=== PATIENT | male | born 1955 | race Caucasian/White ===

== ENCOUNTER 2021-02-06 21:32 | Emergency (ER) | payer OTHER ==
[~2021-02-06] VITALS: Ht 185 cm; Wt 88.5 kg
[2021-02-06 21:50] LABS: BILIRUBIN,URINE NEGATIVE (NEGATIVE); CLARITY,URINE CLEAR; COLOR,URINE YELLOW; GLUCOSE, URINE (UA) NEGATIVE (NEGATIVE); KETONES,URINE NEGATIVE (NEGATIVE); LEUKOCYTE ESTERASE ,URINE TRACE (NEGATIVE); NITRITE,URINE NEGATIVE (NEGATIVE); PROTEIN,URINE NEGATIVE (NEGATIVE)
--- NOTE | 2021-02-06 21:51 | ED GU-Male ---
General Stated Complaint: URINARY FREQUENCY AND URGENCY Source: patient Exam Limitations: no limitations History of Present Illness Date Seen by Provider: Feb 06, 2021 Time Seen by Provider: 21:30 Initial Comments Patient to the ER by private conveyance with significant other and chief complaint 36 hours of urinary frequency burning pain and history of prostatitis. He recently moved to the area and does not see a urologist locally. He has not been on antibiotics for it recently. He is having some chills and body aches but no cough nausea objective fever Allergies and Home Medications Patient Home Medication List Home Medication List Reviewed: Yes Review of Systems Review of Systems Constitutional: No chills, No diaphoresis EENTM: No ear discharge, No ear pain Respiratory: No cough, No short of breath Cardiovascular: No chest pain, No edema Gastrointestinal: No abdominal pain, No nausea Genitourinary: denies burning, denies dysuria Musculoskeletal: No back pain, No joint pain All Other Systemes Reviewed Negative Unless Noted: Yes Past Pygmibu-Jumtxg-Pliczz Hx Patient Social History Tobacco Use?: No Use of E-Cig and/or Vaping dev: No Substance use?: No Pt feels they are or have been: No Physical Exam Vital Signs Vital Signs - First Documented 02/06/21 21:45 Temp 37.0 Pulse 72 Resp 16 B/P (MAP) 156/86 (109) O2 Delivery Room Air Capillary Refill : Height, Weight, BMI Height: '" Weight: lbs. oz. kg; BMI Method: General Appearance: WD/WN, mild distress HEENT: PERRL/EOMI, pharynx normal Neck: full range of motion, normal inspection Cardiovascular: normal peripheral pulses, regular rate, rhythm Respiratory: no respiratory distress, no accessory muscle use Gastrointestinal: normal bowel sounds, non tender, soft Extremities: normal range of motion, non-tender, normal capillary refill Neurologic/Psychiatric: alert, normal mood/affect, oriented x 3 Progress/Results/Core Measures Suspected Sepsis SIRS Temperature: Pulse: Respiratory Rate: Blood Pressure / Mean: Results/Orders Lab Results Laboratory Tests Test 02/06/21 21:45 Range/Units Urine Color YELLOW Urine Clarity CLEAR Urine pH 6.0 5-9 Urine Specific [place] 1.020 1.016-1.022 Urine Protein NEGATIVE NEGATIVE Urine Glucose (UA) NEGATIVE NEGATIVE Urine Ketones NEGATIVE NEGATIVE Urine Nitrite NEGATIVE NEGATIVE Urine Bilirubin NEGATIVE NEGATIVE Urine Urobilinogen 0.2 < = 1.0 MG/DL Urine Leukocyte Esterase TRACE H NEGATIVE Urine RBC (Auto) NEGATIVE NEGATIVE Urine RBC NONE /HPF Urine WBC 0-2 /HPF Urine Squamous Epithelial Cells RARE /HPF Urine Crystals NONE /LPF Urine Bacteria TRACE /HPF Urine Casts NONE /LPF Urine Mucus SMALL H /LPF Urine Culture Indicated NO My Orders Orders - LUIS DANIEL VIDES Ua Culture If Indicated (02/06/21 21:37) Bladder Scan (02/06/21 21:57) Vital Signs/I&O 02/06/21 21:45 Temp 37.0 Pulse 72 Resp 16 B/P (MAP) 156/86 (109) O2 Delivery Room Air Capillary Refill : Progress Note #1: Time: 21:51 Progress Note UA and a bedside bladder scan Progress Note #2: Time: 23:29 Progress Note Bladder scan shows 25 mL after he urinated. UA does not look remarkable or going to put him on antibiotics regardless to cover for possible prostatitis. Departure Impression Primary Impression: Prostatitis Qualified Codes: N41.0 - Acute prostatitis Disposition: HOME, SELF-CARE Condition: Stable Departure-Patient Inst. Decision time for Depature: 23:30 Referrals: NO,LOCAL PHYSICIAN (PCP) Primary Care Physician DINA BAKER MD Patient Instructions: Prostatitis (DC) Add. Discharge Instructions: Ciprofloxacin 1 capsule twice a day for the next week. Take it with food. Drink plenty of fluids. Follow-up with Dr. Baker, urology by calling for an appointment tomorrow. Return to the ER if you are having inability to urinate or other worrisome symptoms. Scripts Ciprofloxacin HCl (Ciprofloxacin HCl) 500 Mg Tablet 500 MG PO BID for 7 Days, #14 TAB 0 Refills Prov: LUIS DANIEL VIDES 02/06/21 Copy Copies To 1: DINA BAKER MD, TITUS J Feb 06, 2021 21:51
[2021-02-06 21:56] LABS: BACTERIA,URINE TRACE /HPF; SQUAMOUS EPITHELIAL CELL,UR RARE /HPF; WBC,URINE 0-2 /HPF
[2021-02-06] MEDS ORDERED: CIPR500T5 PO (23:32)
[2021-02-06] MEDS ORDERED: CIPROFLOXACIN 500 MG (CIPRO) TABLET PO STA (23:36)
[2021-02-06 23:46] VITALS: BP 143/72
== END 2021-02-06 23:46 | disposition home or self-care (01) ==
LOC: ER 21:35
DX: N41.9 Inflammatory disease of prostate, unspecified (principal)
CPT/HCPCS: 81000; 99283

== ENCOUNTER → 2021-03-04 | Outpatient (CLI) | payer OTHER ==
[~2021-03-04] MED LIST: CIPR500T5 PO
== END ==
LOC: CARD 13:00
PROVIDERS: ATTEND Family Medicine
DX: I08.0 Rheumatic disorders of both mitral and aortic valves (principal)
CPT/HCPCS: 93306

== ENCOUNTER 2021-03-24 09:03 | Outpatient (CLI) | payer OTHER ==
[~2021-03-24] VITALS: Ht 185.5 cm; Wt 88.5 kg
[2021-03-24] MEDS ORDERED: BUDE10.2 IH (10:32)
[2021-03-24] MEDS ORDERED: MONT10TA21 PO (10:32)
== END 2021-03-24 11:25 | disposition home or self-care (01) ==
LOC: PREOP 09:03
PROVIDERS: ATTEND Internal Medicine
DX: Z01.818 Encounter for other preprocedural examination (principal)

== ENCOUNTER 2021-04-01 07:30 | Day surgery (SDC) | payer OTHER ==
--- NOTE | 2021-03-25 06:56 | HISTORY AND PHYSICAL ---
DATE OF SERVICE: COLONOSCOPY HISTORY AND PHYSICAL HISTORY OF PRESENT ILLNESS: Anand The patient is a 65-year-old white male referred by Dr. Souza for screening colonoscopy. He is deemed to be of higher than average risk as he has a personal history of colon polyps and his brother was diagnosed with colon cancer in his mid 50s. The patient denies melena or bright red blood per rectum, abdominal pain or change in bowel habit. He reports no significant change in weight. PAST MEDICAL HISTORY: Significant for COPD and gastroesophageal reflux without evidence for dysphagia, controlled well on Prilosec 20 mg daily. He has had several bouts of prostatitis, most recently treated in February, which resulted in the emergency room visits. He is being followed by Dr. Garcia with current resolution of symptoms. He reports a history of mitral valve prolapse, had a friend with the disease. He developed endocarditis and reports that he has always had antibiotics prior to previous dental procedures and colonoscopy with IV antibiotic prior to past colonoscopies. FAMILY HISTORY: As noted in the HPI. 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 He has a 30+ pack year smoking history, but quit in 1991. REVIEW OF SYSTEMS: CONSTITUTIONAL: Denies night sweats, chills, fever, change in weight. PULMONARY: Denies dyspnea on exertion, stable cough, no shortness of breath at rest. No hemoptysis. CARDIOVASCULAR: Denies chest pain, orthopnea, PND or pedal edema and has had no syncope or presyncope. GASTROINTESTINAL: As noted in the HPI. PHYSICAL EXAMINATION: GENERAL: Reveals a fit appearing white male, appeared to be in no acute distress. VITAL SIGNS: Blood pressure 140/80, weight 196 pounds. HEENT: Unremarkable. Sclerae nonicteric. CHEST: Clear to auscultation. CARDIOVASCULAR: Reveals a regular rate and rhythm, did not appreciate any abnormal heart sounds or heart murmur. ABDOMEN: Soft, supple without mass, organomegaly or tenderness. EXTREMITIES: Reveal no cyanosis, clubbing or edema. PAST SURGICAL HISTORY: The patient has had sinus surgery and ventral hernia repair with mesh. Electronic medical record was reviewed. Echo did reveal mitral valve leaflet thickening with some posterior prolapse and mild mitral insufficiency with normal LV function and estimated ejection fraction of 60 to 65%. PA pressure was upper limits of normal, estimated at 30 to 35 mmHg. No other significant valvular abnormalities were noted. ASSESSMENT AND PLAN: The patient is being set up for screening colonoscopy, deemed to be of higher than average risk as he has had a past history of colon polyps and a brother diagnosed with colon cancer in his mid 50s. We will plan on giving 1 gram of Ancef prior to colonoscopy. Prep instructions with the Suprep kit were given and questions were answered. I thank you for the referral of this pleasant gentleman. Job ID: [id number] DocumentID: [id number] Dictated Date: 03/17/2021 16:37:54 [employer]one [employer]ner Date: 03/17/2021 16:58:22 Dictated By: WILFRED SMITH MD
[~2021-04-01] VITALS: Ht 185.5 cm; Wt 88.5 kg
[~2021-04-01 07:30] MED LIST changes: +BUDE10.2 IH; +LACTATED RINGERS 1,000 ML IV STA; +LIDOCAINE JELLY 2% 6 ML SYRINGE MM PRN; +MONT10TA21 PO; +ceFAZolin INJECTION 1,000 MG in WATER (STERILE) FOR INJECTION 10 ML IV ONE
--- OUTSIDE RECORDS SUMMARY | 2021-04-01 07:33 | XMS REPORT | CCD ---
Author Author Brennan Souza D.O. Organization ASHLEE SOUZA DO [facility] Address [address] [place] [address] Phone Care Team Providers Care Division Chief Name Role Phone PP Unavailable CCM Unavailable Summary Purpose Interface Exchange Insurance Providers Payer name Policy type / Coverage type Covered alliance party ID Effective Begin Date Effective End Date [facility] Commercial Insurance [id number] Unkno wn Family history Brother Diagnosis Age At Onset Cancer Unknown Father Diagnosis Age At Onset Cardiovascular disease Unknown Mother Diagnosis Age At Onset Rheumatic fever Unknown Social History Social History Element Codes Description Effective Dates Marital status Unknown 02/28/2021 Number of children Unknown 2 02/28/2021 Employment Unknown Currently employed 02/28/[address]: 4531293 Former smoker quit 1992 02/28/[address]: 030653260 Never drinks alcohol 2020 Has the patient ever used illegal drugs? Unknown In the past only as teenager only 02/28/2021 Allergies, Adverse Reactions, Alerts Substance Reaction Codes Entered Date Inactivated Date Status * NO KNOWN FOOD ALLERGIES Unknown 02/28/2021 No Inactiv e Date Active * NO KNOWN ENVIRONMENTAL ALLERGIES Unknown 02/28/2021 N o Inactive Date Active * NO KNOWN DRUG ALLERGIES Unknown 02/28/2021 No Inactiv e Date Active Problems Condition Codes Effective Dates Condition Status Acute effusion of both middle ears ICD-10: H65.193 ICD-9: 381.00 03/22/2021 Active Decreased hearing of both ears ICD-10: H91.93 ICD-9: 389.9 03/22/2021 Active Colonic polyp ICD-10: K63.5 ICD-9: 211.3 02/28/2021 Active COPD (chronic obstructive pulmonary disease) ICD-10: J 44.9 ICD-9: 496 02/28/2021 Active Esophageal reflux ICD-10: K21.9 ICD-9: 530.81 02/28/2021 Active Exercise-induced asthma ICD-10: J45.990 ICD-9: 493.81 02/28/2021 Active Family history of colon cancer ICD-10: Z80.0 ICD-9: V16.0 02/28/2021 Active Mitral valve prolapse ICD-10: I34.1 ICD-9: 424.0 02/28/2021 Active Prostatitis ICD-10: N41.9 ICD-9: 601.9 02/28/2021 Active Medications Medication Codes Instructions Start Date Stop Date Status Fill Instructions prednisone 20 mg tablet RxNorm: 999224 Take 1 Tablet(s) Oral QD 03/26/2021 Active Prilosec OTC 20 mg tablet,delayed release RxNorm: 702122 Take 1 Tablet(s) Oral QD 02/28/2021 No Stop Date Active famotidine 40 mg tablet RxNorm: 092279 Take 1 Tablet(s) Oral QD replaces prilosec 02/28/2021 03/29/2021 Active montelukast 10 mg tablet RxNorm: 642764 Take 1 Tablet(s) Oral QD 02/28/2021 Inactive multivitamin tablet RxNorm: Take 1 Tablet(s) Oral QD 02/28/2021 No Stop Date Active Symbicort 160 mcg-4.5 mcg/actuation HFA aerosol inhaler RxNo rm: 6626040 Inhale 2 Inhalation two times a day 02/28/2021 No Stop Date Active montelukast 10 mg tablet RxNorm: 761659 Take 1 Tablet(s) Oral QD 02/27/2021 Inactive Medication Administered No Medication Administered data Immunizations No Immunization data Results No Results data Procedures No Procedures data Vital Signs Date Vital 03/22/2021 Blood Pressure 1: 136/77 Code: 8480-6 Heart Rate 1: 72 bpm Respiratory Rate: 16 bpm SpO2: 99% Temperature: 36.3 (C) / 97.3 (F) We ight: 196 lbs Code: 41741-1 02/28/2021 Blood Pressure 1: 138/76 Code: 8480-6 BMI: 25.9 Code: 42655-8 Heart Rate 1: 72 bpm Height: 6'1" Code: 8302-2 Respiratory Rate: 20 bpm SpO2: 96% Temperature: 36.6 (C) / 97.9 (F) Weight: 196 lbs Code: 32270-2 Functional Status No Functional Status data Reason For Visit Reason For Visit Effective Dates Notes otitis media 03/22/2021 ~generic 02/28/2021 New Patient---establ ishing visit Encounters Encounter Performer Location Codes Date () OFFICE/OUTPATIENT VISIT EST Diagnosis: Acute effusion of both middle ears[ICD10: H65.193] Diagnosis: Decreased hearing of both ears[ICD10: H91.93] Miroslava Garcia ASHLEE Brar [employer] CPT-4: 80522 03/22/2021 ([id number]) OFFICE/OUTPATIENT VISIT NEW Diagnosis: COPD (chronic obstructive pulmonary disease)[ICD10: J44.9] Diagnosis: Exercise-induced asthma[ICD10: J45.990] Diagnosis: Esophageal reflux[ICD10: K21.9] Diagnosis: Prostatitis[ICD10: N41.9] Diagnosis: Colonic polyp[ICD10: K63.5] Diagnosis: Family history of colon cancer[ICD10: Z80.0] Diagnosis: Mitral valve prolapse[ICD10: I34.1] Ashlee VIDALES [employer] CPT-4: 28083 02/28/2021 Plan of Care Planned Activity Notes Codes Status Date Visit Diagnosis Plan: Acute effusion of both middle ea rs Discussion: Continue zyrtec and flonase. Start prednisone. Discussed eustacian tube exercises. ICD-9 : 381.00 ICD-10 : H65.193 03/22/2021 Visit Diagnosis Plan: Decreased hearing of both ears D iscussion: F/U for continued/worsening hearing loss- discussed referral if needed. ICD-9 : 389.9 ICD-10 : H91.93 03/22/2021 Patient Education: Patient Medication Summary Completed 03/22/2021 Patient Education: prednisone- OptimizeRX Coupon [phone] https://www.[employer]/resources/getResource/61/[email or web address]-[email or web address] Completed 03/22/2021 Visit Diagnosis Plan: COPD (chronic obstructive pulmon merlene disease) Discussion: Referral to new director of cath lab--had PFT and saw pulmonology in [place] about 2mos ago Stable on symbicort ICD-9 : 496 ICD-10 : J44.9 02/28/2021 Visit Diagnosis Plan: Exercise-induced asthma Discussi on: Pretreats with albuterol ICD-9 : 493.81 ICD-10 : J45.990 02/28/2021 Visit Diagnosis Plan: Mitral valve prolapse Discussion : Update 2-D ECHO ICD-9 : 424.0 ICD-10 : I34.1 02/28/2021 Visit Diagnosis Plan: Prostatitis Discussion: Followin g with Dr. Garcia ICD-9 : 601.9 ICD-10 : N41.9 02/28/2021 Visit Diagnosis Plan: Colonic polyp Discussion: Due fo r updated colonoscopy--referral to Dr. Yeung ICD-9 : 211.3 ICD-10 : K63.5 02/28/2021 Visit Diagnosis Plan: Esophageal reflux Discussion: Wi ll try pepcid in place of prilosec and see how he does ICD-9 : 530.81 ICD-10 : K21.9 02/28/2021 Appointment: Ashlee Souza WPtel: [address] [place] [address] NEW PATIENT 02/28/2021 Patient Education: montelukast- OptimizeRX Coupon [phone] https://www.[employer]/samplemd/resources/getResource/61/[email or web address]-1y4e-an Completed 02/28/2021 Patient Education: famotidine- OptimizeRX Coupon [phone] https://www.[employer].com/samplemd/resources/getResource/61/xs4uyjp4-938b-6z2s-vi Completed 02/28/2021 Care Plan: Referral Order SNOMED-CT : 30 7819740 Pending 02/28/2021 Referral: Dominick Yeung WPtel: [phone] Referral Appointment Requested Instructions No Instructions Medical Equipment No Medical Equipment data Health Concerns Section Health Concerns data not found Goals Section Goals data not found Interventions Section Interventions data not found Health Status Evaluations/Outcomes Section Health Status Evaluations/Outcomes data not found Advance Directives No Advance Directive data
--- OUTSIDE RECORDS SUMMARY | 2021-04-01 07:33 | XMS REPORT | CCD ---
Author Author Brennan Souza D.O. Organization ASHLEE SOUZA DO [facility] Address [address] [place] [address] Phone Care Team Providers Care Professor Of Floriculture Name Role Phone PP Unavailable CCM Unavailable Summary Purpose Interface Exchange Insurance Providers Payer name Policy type / Coverage type Covered green party ID Effective Begin Date Effective End Date [facility] Commercial Insurance [id number] Unkno wn Family history Brother Diagnosis Age At Onset Cancer Unknown Father Diagnosis Age At Onset Cardiovascular disease Unknown Mother Diagnosis Age At Onset Rheumatic fever Unknown Social History Social History Element Codes Description Effective Dates Marital status Unknown 02/28/2021 Number of children Unknown 2 02/28/2021 Employment Unknown Currently employed 02/28/[address]: 7736192 Former smoker quit 1992 02/28/[address]: 693878809 Never drinks alcohol 2020 Has the patient [...] Fill Instructions prednisone 20 mg tablet RxNorm: 451525 Take 1 Tablet(s) Oral QD 03/26/2021 Active Prilosec OTC 20 mg tablet,delayed release RxNorm: 714021 Take 1 Tablet(s) Oral QD 02/28/2021 No Stop Date Active famotidine 40 mg tablet RxNorm: 821639 Take 1 Tablet(s) Oral QD replaces prilosec 02/28/2021 03/29/2021 Active montelukast 10 mg tablet RxNorm: 614648 Take 1 Tablet(s) Oral QD 02/28/2021 Inactive multivitamin tablet RxNorm: Take 1 Tablet(s) Oral QD 02/28/2021 No Stop Date Active Symbicort 160 mcg-4.5 mcg/actuation HFA aerosol inhaler RxNo rm: 6035364 Inhale 2 Inhalation two times a day 02/28/2021 No Stop Date Active montelukast 10 mg tablet RxNorm: 653377 Take 1 Tablet(s) Oral QD 02/27/2021 Inactive Medication Administered No Medication Administered data Immunizations No Immunization data Results No Results data Procedures No Procedures data Vital Signs Date Vital 03/22/2021 Blood Pressure 1: 136/77 Code: 8480-6 Heart Rate 1: 72 bpm Respiratory Rate: 16 bpm SpO2: 99% Temperature: 36.3 (C) / 97.3 (F) We ight: 196 lbs Code: 20363-7 02/28/2021 Blood Pressure 1: 138/76 Code: 8480-6 BMI: 25.9 Code: 37230-5 Heart Rate 1: 72 bpm Height: 6'1" Code: 8302-2 Respiratory Rate: 20 bpm SpO2: 96% Temperature: 36.6 (C) / 97.9 (F) Weight: 196 lbs Code: 62682-2 Functional Status No Functional Status data Reason For Visit Reason For Visit Effective Dates Notes otitis media 03/22/2021 ~generic 02/28/2021 New Patient---establ ishing visit Encounters Encounter Performer Location Codes Date () OFFICE/OUTPATIENT VISIT EST Diagnosis: Acute effusion of both middle ears[ICD10: H65.193] Diagnosis: Decreased hearing of both ears[ICD10: H91.93] Miroslava Garcia ASHLEE Brra [employer] CPT-4: 07826 03/22/2021 ([id number]) OFFICE/OUTPATIENT VISIT NEW Diagnosis: COPD (chronic obstructive pulmonary disease)[ICD10: J44.9] Diagnosis: Exercise-induced asthma[ICD10: J45.990] Diagnosis: Esophageal reflux[ICD10: K21.9] Diagnosis: Prostatitis[ICD10: N41.9] Diagnosis: Colonic polyp[ICD10: K63.5] Diagnosis: Family history of colon cancer[ICD10: Z80.0] Diagnosis: Mitral valve prolapse[ICD10: I34.1] Ashlee VIDALES [address] CPT-4: 76476 02/28/2021 Plan of Care Planned Activity Notes [...] Completed 03/22/2021 Patient Education: prednisone- OptimizeRX Coupon [phone] https://www.[employer]/resources/getResource/61/au3g90uv-k0q3-7m16-e3 Completed 03/22/2021 Visit Diagnosis Plan: COPD (chronic obstructive pulmon merlene disease) Discussion: Referral to new bin filler--had PFT and saw pulmonology in [place] about [...] : K21.9 02/28/2021 Appointment: Ashlee Souza WPtel: [phone] [place] [address] NEW PATIENT 02/28/2021 Patient Education: montelukast- OptimizeRX Coupon [phone] https://www.[employer]/samplemd/resources/getResource/61/[email or web address]-4l1x-tw Completed 02/28/2021 Patient Education: famotidine- OptimizeRX Coupon [phone] https://www.[employer].com/samplemd/resources/getResource/61/am8ejsn8-857z-2s0x-bv Completed 02/28/2021 Care Plan: Referral Order SNOMED-CT : 30 0570049 Pending 02/28/2021 Referral: Dominick Yeung WPtel: [phone] Referral Appointment Requested Instructions No Instructions Medical Equipment No Medical Equipment data Health Concerns Section Health Concerns data not found Goals Section Goals data not found Interventions Section Interventions data not found Health Status Evaluations/Outcomes Section Health Status Evaluations/Outcomes data not found Advance Directives No Advance Directive data
--- OUTSIDE RECORDS SUMMARY | 2021-04-01 07:33 | XMS REPORT | CCD ---
Author Author Brennan Souza D.O. Organization ASHLEE SOUZA DO [facility] Address [address] [place] [address] Phone Care Team Providers Care Product Development Manager Name Role Phone PP Unavailable CCM Unavailable Summary Purpose Interface Exchange Insurance Providers Payer name Policy type / Coverage type Covered republican ID Effective Begin Date Effective End Date [facility] Commercial Insurance [id number] Unkno wn Family history Brother Diagnosis Age At Onset Cancer Unknown Father Diagnosis Age At Onset Cardiovascular disease Unknown Mother Diagnosis Age At Onset Rheumatic fever Unknown Social History Social History Element Codes Description Effective Dates Marital status Unknown 02/28/2021 Number of children Unknown 2 02/28/2021 Employment Unknown Currently employed 02/28/[address]: 5844925 Former smoker quit 1992 02/28/[address]: 638949753 Never drinks alcohol 2020 Has the patient [...] Fill Instructions prednisone 20 mg tablet RxNorm: 707061 Take 1 Tablet(s) Oral QD 03/26/2021 Active Prilosec OTC 20 mg tablet,delayed release RxNorm: 431760 Take 1 Tablet(s) Oral QD 02/28/2021 No Stop Date Active famotidine 40 mg tablet RxNorm: 139282 Take 1 Tablet(s) Oral QD replaces prilosec 02/28/2021 03/29/2021 Active montelukast 10 mg tablet RxNorm: 962053 Take 1 Tablet(s) Oral QD 02/28/2021 Inactive multivitamin tablet RxNorm: Take 1 Tablet(s) Oral QD 02/28/2021 No Stop Date Active Symbicort 160 mcg-4.5 mcg/actuation HFA aerosol inhaler RxNo rm: 7670631 Inhale 2 Inhalation two times a day 02/28/2021 No Stop Date Active montelukast 10 mg tablet RxNorm: 687874 Take 1 Tablet(s) Oral QD 02/27/2021 Inactive Medication Administered No Medication Administered data Immunizations No Immunization data Results No Results data Procedures No Procedures data Vital Signs Date Vital 03/22/2021 Blood Pressure 1: 136/77 Code: 8480-6 Heart Rate 1: 72 bpm Respiratory Rate: 16 bpm SpO2: 99% Temperature: 36.3 (C) / 97.3 (F) We ight: 196 lbs Code: 53832-3 02/28/2021 Blood Pressure 1: 138/76 Code: 8480-6 BMI: 25.9 Code: 35354-2 Heart Rate 1: 72 bpm Height: 6'1" Code: 8302-2 Respiratory Rate: 20 bpm SpO2: 96% Temperature: 36.6 (C) / 97.9 (F) Weight: 196 lbs Code: 77479-5 Functional Status No Functional Status data Reason For Visit Reason For Visit Effective Dates Notes otitis media 03/22/2021 ~generic 02/28/2021 New Patient---establ ishing visit Encounters Encounter Performer Location Codes Date () OFFICE/OUTPATIENT VISIT EST Diagnosis: Acute effusion of both middle ears[ICD10: H65.193] Diagnosis: Decreased hearing of both ears[ICD10: H91.93] Miroslava Garcia ASHLEE Brar [employer] CPT-4: 19365 03/22/2021 ([id number]) OFFICE/OUTPATIENT VISIT NEW Diagnosis: COPD (chronic obstructive pulmonary disease)[ICD10: J44.9] Diagnosis: Exercise-induced asthma[ICD10: J45.990] Diagnosis: Esophageal reflux[ICD10: K21.9] Diagnosis: Prostatitis[ICD10: N41.9] Diagnosis: Colonic polyp[ICD10: K63.5] Diagnosis: Family history of colon cancer[ICD10: Z80.0] Diagnosis: Mitral valve prolapse[ICD10: I34.1] Ashlee VIDALES [employer] CPT-4: 35755 02/28/2021 Plan of Care Planned Activity Notes [...] Completed 03/22/2021 Patient Education: prednisone- OptimizeRX Coupon [phone] https://www.[employer]/resources/getResource/61/[email or web address]-[email or web address] Completed 03/22/2021 Visit Diagnosis Plan: COPD (chronic obstructive pulmon merlene disease) Discussion: Referral to new manager medical affairs--had PFT and saw pulmonology in [place] about [...] : K21.9 02/28/2021 Appointment: Ashlee Souza WPtel: [address] [place] [address] NEW PATIENT 02/28/2021 Patient Education: montelukast- OptimizeRX Coupon [phone] https://www.[employer]/samplemd/resources/getResource/61/[email or web address]-6n7a-yr Completed 02/28/2021 Patient Education: famotidine- OptimizeRX Coupon [phone] https://www.[employer].com/samplemd/resources/getResource/61/[email or web address]-1m3q-fm Completed 02/28/2021 Care Plan: Referral Order SNOMED-CT : 30 6584318 Pending 02/28/2021 Referral: Dominick Yeung WPtel: [phone] Referral Appointment Requested Instructions No Instructions Medical Equipment No Medical Equipment data Health Concerns Section Health Concerns data not found Goals Section Goals data not found Interventions Section Interventions data not found Health Status Evaluations/Outcomes Section Health Status Evaluations/Outcomes data not found Advance Directives No Advance Directive data
--- OUTSIDE RECORDS SUMMARY | 2021-04-01 07:33 | XMS REPORT | CCD ---
Author Author Brennan Souza D.O. Organization [facility] Address [address] [place] [address] Phone Care Team Providers Care Enterprise Software Engineer Name Role Phone PP Unavailable CCM Unavailable Summary Purpose Interface Exchange Insurance Providers Payer name Policy type / Coverage type Covered libertarian ID Effective Begin Date Effective End Date [facility] Commercial Insurance [id number] Unkno wn Family history Brother Diagnosis Age At Onset Cancer Unknown Father Diagnosis Age At Onset Cardiovascular disease Unknown Mother Diagnosis Age At Onset Rheumatic fever Unknown Social History Social History Element Codes Description Effective Dates Marital status Unknown 02/28/2021 Number of children Unknown 2 02/28/2021 Employment Unknown Currently employed 02/28/[address]: 8955286 Former smoker quit 1992 02/28/[address]: 407466023 Never drinks alcohol 2020 Has the patient [...] Fill Instructions prednisone 20 mg tablet RxNorm: 687019 Take 1 Tablet(s) Oral QD 03/26/2021 Active Prilosec OTC 20 mg tablet,delayed release RxNorm: 222042 Take 1 Tablet(s) Oral QD 02/28/2021 No Stop Date Active famotidine 40 mg tablet RxNorm: 986441 Take 1 Tablet(s) Oral QD replaces prilosec 02/28/2021 03/29/2021 Active montelukast 10 mg tablet RxNorm: 144314 Take 1 Tablet(s) Oral QD 02/28/2021 Inactive multivitamin tablet RxNorm: Take 1 Tablet(s) Oral QD 02/28/2021 No Stop Date Active Symbicort 160 mcg-4.5 mcg/actuation HFA aerosol inhaler RxNo rm: 8051520 Inhale 2 Inhalation two times a day 02/28/2021 No Stop Date Active montelukast 10 mg tablet RxNorm: 660072 Take 1 Tablet(s) Oral QD 02/27/2021 Inactive Medication Administered No Medication Administered data Immunizations No Immunization data Results No Results data Procedures No Procedures data Vital Signs Date Vital 03/22/2021 Blood Pressure 1: 136/77 Code: 8480-6 Heart Rate 1: 72 bpm Respiratory Rate: 16 bpm SpO2: 99% Temperature: 36.3 (C) / 97.3 (F) We ight: 196 lbs Code: 52688-1 02/28/2021 Blood Pressure 1: 138/76 Code: 8480-6 BMI: 25.9 Code: 96619-1 Heart Rate 1: 72 bpm Height: 6'1" Code: 8302-2 Respiratory Rate: 20 bpm SpO2: 96% Temperature: 36.6 (C) / 97.9 (F) Weight: 196 lbs Code: 60822-6 Functional Status No Functional Status data Reason For Visit Reason For Visit Effective Dates Notes otitis media 03/22/2021 ~generic 02/28/2021 New Patient---establ ishing visit Encounters Encounter Performer Location Codes Date () OFFICE/OUTPATIENT VISIT EST Diagnosis: Acute effusion of both middle ears[ICD10: H65.193] Diagnosis: Decreased hearing of both ears[ICD10: H91.93] Miroslava Garcia [facility] [employer] CPT-4: 67270 03/22/2021 ([id number]) OFFICE/OUTPATIENT VISIT NEW Diagnosis: COPD (chronic obstructive pulmonary disease)[ICD10: J44.9] Diagnosis: Exercise-induced asthma[ICD10: J45.990] Diagnosis: Esophageal reflux[ICD10: K21.9] Diagnosis: Prostatitis[ICD10: N41.9] Diagnosis: Colonic polyp[ICD10: K63.5] Diagnosis: Family history of colon cancer[ICD10: Z80.0] Diagnosis: Mitral valve prolapse[ICD10: I34.1] Ashlee VIDALES [employer] CPT-4: 45142 02/28/2021 Plan of Care Planned Activity Notes [...] Completed 03/22/2021 Patient Education: prednisone- OptimizeRX Coupon [phone] https://www.[employer]/resources/getResource/61/ru7t23hy-h4y2-4j37-w2 Completed 03/22/2021 Visit Diagnosis Plan: COPD (chronic obstructive pulmon merlene disease) Discussion: Referral to new rn recruitment--had PFT and saw pulmonology in [place] about [...] : K21.9 02/28/2021 Appointment: Ashlee Souza WPtel: [address] [place] [address] NEW PATIENT 02/28/2021 Patient Education: montelukast- Optimize[employer] Coupon [phone] https://www.[employer]/samplemd/resources/getResource/61/34ak00u9-6u5u-9y3a-lg Completed 02/28/2021 Patient Education: famotidine- OptimizeRX Coupon [id number] https://www.[employer].com/samplemd/resources/getResource/61/ql9leuw7-808u-8l7p-pz Completed 02/28/2021 Care Plan: Referral Order SNOMED-CT : 30 3381445 Pending 02/28/2021 Referral: Dominick Yeung WPtel: [phone] Referral Appointment Requested Instructions No Instructions Medical Equipment No Medical Equipment data Health Concerns Section Health Concerns data not found Goals Section Goals data not found Interventions Section Interventions data not found Health Status Evaluations/Outcomes Section Health Status Evaluations/Outcomes data not found Advance Directives No Advance Directive data
--- OUTSIDE RECORDS SUMMARY | 2021-04-01 07:33 | XMS REPORT | CCD ---
Author Author Brennan Souza D.O. Organization [facility] Address [address] [place] [address] Phone Care Team Providers Care Glost Tile Shader Name Role Phone PP Unavailable CCM Unavailable Summary Purpose Interface Exchange Insurance Providers Payer name Policy type / Coverage type Covered libertarian ID Effective Begin Date Effective End Date [facility] Commercial Insurance [id number] Unkno wn Family history Brother Diagnosis Age At Onset Cancer Unknown Father Diagnosis Age At Onset Cardiovascular disease Unknown Mother Diagnosis Age At Onset Rheumatic fever Unknown Social History Social History Element Codes Description Effective Dates Marital status Unknown 02/28/2021 Number of children Unknown 2 02/28/2021 Employment Unknown Currently employed 02/28/[address]: 6212910 Former smoker quit 1992 02/28/[address]: 937536704 Never drinks alcohol 2020 Has the patient [...] Fill Instructions prednisone 20 mg tablet RxNorm: 420780 Take 1 Tablet(s) Oral QD 03/26/2021 Active Prilosec OTC 20 mg tablet,delayed release RxNorm: 596959 Take 1 Tablet(s) Oral QD 02/28/2021 No Stop Date Active famotidine 40 mg tablet RxNorm: 984002 Take 1 Tablet(s) Oral QD replaces prilosec 02/28/2021 03/29/2021 Active montelukast 10 mg tablet RxNorm: 607152 Take 1 Tablet(s) Oral QD 02/28/2021 Inactive multivitamin tablet RxNorm: Take 1 Tablet(s) Oral QD 02/28/2021 No Stop Date Active Symbicort 160 mcg-4.5 mcg/actuation HFA aerosol inhaler RxNo rm: 8293854 Inhale 2 Inhalation two times a day 02/28/2021 No Stop Date Active montelukast 10 mg tablet RxNorm: 171642 Take 1 Tablet(s) Oral QD 02/27/2021 Inactive Medication Administered No Medication Administered data Immunizations No Immunization data Results No Results data Procedures No Procedures data Vital Signs Date Vital 03/22/2021 Blood Pressure 1: 136/77 Code: 8480-6 Heart Rate 1: 72 bpm Respiratory Rate: 16 bpm SpO2: 99% Temperature: 36.3 (C) / 97.3 (F) We ight: 196 lbs Code: 62661-3 02/28/2021 Blood Pressure 1: 138/76 Code: 8480-6 BMI: 25.9 Code: 03452-0 Heart Rate 1: 72 bpm Height: 6'1" Code: 8302-2 Respiratory Rate: 20 bpm SpO2: 96% Temperature: 36.6 (C) / 97.9 (F) Weight: 196 lbs Code: 41130-9 Functional Status No Functional Status data Reason For Visit Reason For Visit Effective Dates Notes otitis media 03/22/2021 ~generic 02/28/2021 New Patient---establ ishing visit Encounters Encounter Performer Location Codes Date () OFFICE/OUTPATIENT VISIT EST Diagnosis: Acute effusion of both middle ears[ICD10: H65.193] Diagnosis: Decreased hearing of both ears[ICD10: H91.93] Miroslava Garcia ASHLEE Brar [employer] CPT-4: 53309 03/22/2021 (01712) OFFICE/OUTPATIENT VISIT NEW Diagnosis: COPD (chronic obstructive pulmonary disease)[ICD10: J44.9] Diagnosis: Exercise-induced asthma[ICD10: J45.990] Diagnosis: Esophageal reflux[ICD10: K21.9] Diagnosis: Prostatitis[ICD10: N41.9] Diagnosis: Colonic polyp[ICD10: K63.5] Diagnosis: Family history of colon cancer[ICD10: Z80.0] Diagnosis: Mitral valve prolapse[ICD10: I34.1] Ashlee VIDALES [employer] CPT-4: 93319 02/28/2021 Plan of Care Planned Activity Notes [...] Completed 03/22/2021 Patient Education: prednisone- OptimizeRX Coupon [phone] https://www.[facility]/[employer]/resources/getResource/61/oq3k72et-i9q1-4t27-p6 Completed 03/22/2021 Visit Diagnosis Plan: COPD (chronic obstructive pulmon merlene disease) Discussion: Referral to [facility]--had PFT and saw pulmonology in [place] about [...] : K21.9 02/28/2021 Appointment: Ashlee Souza WPtel: [address] [place] [address] NEW PATIENT 02/28/2021 Patient Education: montelukast- OptimizeRX Coupon [phone] https://www.[employer]/samplemd/resources/getResource/61/07cb74u9-3b1d-9a1v-jz Completed 02/28/2021 Patient Education: famotidine- OptimizeRX Coupon [phone] https://www.[employer].com/samplemd/resources/getResource/61/iy0dsgn0-430h-0c7x-va Completed 02/28/2021 Care Plan: Referral Order SNOMED-CT : 30 [id number] Pending 02/28/2021 Referral: Dominick Yeung WPtel: [phone] Referral Appointment Requested Instructions No Instructions Medical Equipment No Medical Equipment data Health Concerns Section Health Concerns data not found Goals Section Goals data not found Interventions Section Interventions data not found Health Status Evaluations/Outcomes Section Health Status Evaluations/Outcomes data not found Advance Directives No Advance Directive data
[2021-04-01] MEDS ORDERED: ceFAZolin INJECTION 0 MG ONE (07:37)
[2021-04-01] MEDS ORDERED: LACTATED RINGERS 1,000 ML IV ONE (07:37)
[2021-04-01] MEDS ORDERED: ceFAZolin INJECTION 1,000 MG ONE (07:42)
[2021-04-01 07:50] VITALS: BP 143/85
[2021-04-01] MEDS ORDERED: PROPOFOL INJECTION 50 ML IV ONE (08:29)
--- NOTE | 2021-04-01 08:31 | Pre-Op Note & Conscious Sedat ---
Pre-Operative Progress Note H&P Reviewed The H&P was reviewed, patient examined and no changes noted. Date H&P Reviewed: Apr 01, 2021 Time H&P Reviewed: 08:00 Conscious Sedation Pre-Proced ASA Score 2 For ASA 3 and 4: Consider anesthesia and medical clearance. Also, for patients with a history of failed moderate sedation consider anesthesia. Airway Lungs Heart ASA score ASA 1: a normal healthy patient ASA 2: a patient with a mild systemic disease (mid diabetes, controlled hypertension, obesity ASA 3: a patient with a severe systemic disease that limits activity (angina, COPD, prior Myocardial infarction) ASA 4: a patient with an incapacitating disease that is a constant threat to life (CHF, renal failure) ASA 5: a moribund patient not expected to survive 24 hrs. (ruptured aneurysm) ASA 6: a declared brain- patient whose organs are being harvested. For emergent operations, add the letter E after the classification Mallampati Classification Grade 2 Sedation Plan Analgesia, Amnesia, Plan communicated to team members, Discussed options with patient/fam, Discussed risks with patient/fam The patient is an appropriate candidate to undergo the planned procedure, sedation, and anesthesia. The patient immediately re-assessed prior to indication. WILFRED SMITH MD Apr 01, 2021 08:31
[2021-04-01 08:58] VITALS: BP 105/59
[2021-04-01 09:03] VITALS: BP 102/62
[2021-04-01 09:10] VITALS: BP 115/74
[2021-04-01 09:29] VITALS: BP 115/74
--- NOTE | 2021-04-01 10:51 | Anesthesia-General Post-Op ---
MAC Patient Condition Mental Status/LOC: Same as Preop Cardiovascular: Satisfactory Nausea/Vomiting: Absent Respiratory: Satisfactory Pain: Controlled Complications: Absent Post Op Complications Complications None Follow Up Care/Instructions Patient Instructions None needed. Anesthesiology Discharge Order Discharge Order Patient is doing well, no complaints, stable vital signs, no apparent adverse anesthesia problems. No complications reported per nursing. ISELA FALCON CRNA Apr 01, 2021 10:51
--- NOTE | 2021-04-01 14:28 | OPERATIVE REPORT ---
DATE OF SERVICE: COLONOSCOPY SUMMARY INDICATION FOR THE PROCEDURE: Screening colonoscopy, family history for colon cancer. DESCRIPTION OF PROCEDURE: The patient was placed in the left lateral decubitus position. Prior to undergoing colonoscopy, digital rectal evaluation was performed. Anal sphincter tone was normal and the perianal reflexes intact. Prostate is mildly enlarged, anodular and nontender to digital inspection. No abnormalities were noted on digital inspection of anal canal or distal rectal vault. The colonoscope was then inserted into the rectum and under direct visualization advanced to cecum. The cecum was identified by identification of the ileocecal valve and cecal strap. Photographic documentation was obtained. Quality of prep was good. FINDINGS: There was no evidence for external hemorrhoids, several grade I-II internal hemorrhoid complexes were noted. Photograph was obtained. The rectum was unremarkable. Findings compatible with mild diverticular disease were noted in the sigmoid and descending colon without evidence for diverticulitis. No other sigmoid or descending colonic abnormalities were noted. The splenic flexure, transverse colon and hepatic flexure were unremarkable. Present in the proximal ascending colon was a diminutive sessile 5 mm polyp that was biopsied and ablated and submitted for histopathology with no significant blood loss. The remainder of the ascending colon and cecum were unremarkable. ASSESSMENT: 1. Mild diverticular disease noted in the sigmoid and descending colon was present without evidence for diverticulitis. 2. Two grade I to II internal hemorrhoid complexes were noted. 3. One small sessile 5 mm polyp was noted in the proximal ascending colon. Considering family history, we will need to await histopathology report before making recommendation for future surveillance colonoscopy. I thank you for the referral of this pleasant gentleman. Job ID: [id number] DocumentID: [id number] Dictated Date: 04/01/2021 11:01:49 Radiology Interventional Physician Date: 04/01/2021 14:28:45 Dictated By: WILFRED SMITH MD
== END 2021-04-01 09:35 | disposition home or self-care (01) ==
LOC: ENDO 07:30
PROVIDERS: ATTEND Internal Medicine
DX: Z12.11 Encounter for screening for malignant neoplasm of colon (principal); D12.2 Benign neoplasm of ascending colon; K64.1 Second degree hemorrhoids; K21.9 Gastro-esophageal reflux disease without esophagitis; J44.9 Chronic obstructive pulmonary disease, unspecified; Z79.82 Long term (current) use of aspirin; Z80.0 Family history of malignant neoplasm of digestive organs; Z79.899 Other long term (current) drug therapy; Z87.891 Personal history of nicotine dependence; Z98.890 Other specified postprocedural states

== ENCOUNTER → 2021-10-05 | Outpatient (CLI) | payer OTHER ==
[~2021-10-05] MED LIST changes: -LACTATED RINGERS 1,000 ML IV STA; -LIDOCAINE JELLY 2% 6 ML SYRINGE MM PRN; -ceFAZolin INJECTION 1,000 MG in WATER (STERILE) FOR INJECTION 10 ML IV ONE
--- NOTE | 2021-10-05 13:55 | Diagnostic Imaging Report ---
INDICATION: Asthma and COPD PA and lateral views of the chest are obtained. FINDINGS: Heart size and pulmonary vascularity are within normal limits, and the lungs are clear, bilaterally. IMPRESSION: Unremarkable chest. Dictated by: Dictated on workstation # [id number]
== END ==
LOC: RAD 13:24
PROVIDERS: ATTEND Internal Medicine Critical Care Medicine
DX: J44.9 Chronic obstructive pulmonary disease, unspecified (principal)
CPT/HCPCS: 71046

== ENCOUNTER → 2022-01-25 | Outpatient (REF) ==
--- NOTE | 2022-01-25 12:35 | Diagnostic Imaging Report ---
INDICATION: Hand pain. COMPARISON: None available. TECHNIQUE: Three radiographs of the left hand dated January 25, 2022. FINDINGS: No acute fracture or dislocation. No destructive osseous process. Carpal alignment is well maintained. Scattered degenerative changes are identified, greatest involving the first CMC joint as well as fifth DIP joint where there is joint space narrowing and osteophyte formation noted. Scapholunate interval is within normal limits. IMPRESSION: No acute osseous abnormality with [id number] degenerative changes, as described above. Dictated by: Dictated on workstation # [id number]
== END ==
LOC: OCC 11:41
PROVIDERS: ATTEND Nurse Practitioner Family
DX: M79.642 Pain in left hand (principal)
CPT/HCPCS: 73130